=== PATIENT | female | born 1980 | race Caucasian/White ===

== ENCOUNTER 2018-02-22 12:01 | Emergency (ER) | payer OTHER ==
[~2018-02-22] VITALS: Ht 172.7 cm; Wt 95.3 kg
--- NOTE | 2018-02-22 14:37 | ED UPPER/LOWER EXTREMITY COMPL ---
History of Present Illness General Chief Complaint: Upper Extremity Injury Stated Complaint: LT ELBOW PAIN (WORK INJURY) Source: patient Exam Limitations: no limitations Vital Signs & Intake/Output Vital Signs & Intake/Output Vital Signs Date Time Temp Pulse Resp B/P B/P Pulse O2 O2 Flow FiO2 Mean Ox Delivery Rate 02/22 1612 84 18 146/86 99 Room Air 02/22 1209 98.1 88 16 164/102 98 Allergies Coded Allergies: thomas (RASH 02/22/18) Triage Note: PT TO THE ER C/O LEFT ELBOW PAIN. PT STATES THAT SHE HAD THIS INJURY IN [place] AT WORK, RESTRAINING A PT. PT STATES THAT HER MRI SHOWED A PARTIAL TEAR IN LEFT TENDON, MRI WAS 2 MONTHS AGO.. PT STATES THAT THE LAST 2 DAYS THAT THE PAIN IS WORSE 12/07. Triage Nurses Notes Reviewed? yes Onset: Gradual Duration: day(s): Timing: recent history Severity: moderate Pain/Injury Location: Left: Elbow. : No Patient currently breastfeeds: No HPI: 38-year-old female presents to emergency department complaining of pain above his left elbow worsening for the past 3 days. Patient states she had a work- related injury several months ago, she had an MRI confirming a partial tear in one of her ligaments. Patient states that her pain had been improving however recently over the past 3 days pain has worsened again. She has been taking ibuprofen since her work-related injury. There was no new trauma since the injury however patient has been going to work, work restrictions include not lifting greater than 20 pounds this arm. Patient denies numbness, tingling, fevers, chills. (Tiffani Mcmahon) Reconcile Medications Diclofenac Sodium (Voltaren) 1 % GEL..GRAM. 1 GM TOP 4 TIMES/DAY PRN pain apply to affected area(s) Lidocaine (Lidoderm) 5 % ADH..PATCH 1 PAT TOP DAILY PRN pain may wear up to 12 hours (Ursula Barragan) Past History Travel History Traveled to [place] past 21 day No Medical History Any Pertinent Medical History? see below for history Psychiatric: bipolar disease Surgical History Surgical History: non-contributory Psychosocial History What is your primary language Polish Tobacco Use: Current Not Daily Family History Hx Contributory? No (Tiffani Mcmahon) Review of Systems Review of Systems Constitutional: Reports: no symptoms. EENTM: Reports: no symptoms. Respiratory: Reports: no symptoms. Cardiovascular: Reports: no symptoms. Gastrointestinal/Abdominal: Reports: no symptoms. Genitourinary: Reports: no symptoms. Musculoskeletal: Reports: see HPI. Skin: Reports: no symptoms. Neurological/Psychological: Reports: no symptoms. Hematologic/Endocrine: Reports: no symptoms. Immunological: Reports: no symptoms. All Other Systems: Reviewed and Negative (Olivia DIAZ,Tiffani Pike) Physical Exam Physical Exam General Appearance: well developed/nourished, no apparent distress, alert, awake Head: atraumatic, normal appearance Eyes: Bilateral: normal appearance. Ears, Nose, Throat: hearing grossly normal Neck: normal inspection, supple, full range of motion Cardiovascular/Respiratory: normal peripheral pulses, no respiratory distress Peripheral Pulses: 2+ radial (R), 2+ radial (L) Back: normal inspection, normal range of motion Shoulder Left: normal range of motion, normal inspection Shoulder Right: normal range of motion, normal inspection Elbow Left: tenderness to proximal elbow, mild ecchymosis to upper arm and mild swelling of upper arm, ROM intact Elbow Right: normal range of motion, normal inspection Hand Left: normal inspection, normal range of motion Hand Right: normal inspection, normal range of motion Neurologic/Tendon: normal sensation, normal motor functions, normal tendon functions Skin: intact, warm/dry, ecchymosis (Olivia DIAZ,Tiffani Pike) Progress Differential Diagnosis: cellulitis, contusion, DVT, sprain, tendon injury Plan of Care: February 22, 2018 at 7 PM Patient signed out to me by JOE Baker Patient is a 38-year-old female who is presenting with a left elbow injury. She has been followed extensively by orthopedics and had an outpatient MRI that showed a ligament tear. She presents to the emergency department looking for additional evaluation and pain control. She was signed out to me with ultrasound pending. Duplex ultrasound was negative for DVT. She will be given Rx Voltaren gel and lidocaine patches for additional pain relief. Instructed to continue using Motrin for pain. She will follow-up with her orthopedist and was given strict return precautions. Ursula Jose PA-C Patient has been seeing an dairy specialist regarding her elbow injury, she is in the process of scheduling surgery for ligament repair. Patient now is having worsening pain. There is mild swelling, low suspicion for DVT however will assess with ultrasound to rule this out. If ultrasound negative this is likely related to inflammation/overuse as the patient has still been going to work despite ligament injury. The patient was signed out to JOE Jose pending ultrasound results. No evidence of cellulitis on physical exam. Patient has intact distal pulses, intact range of motion. No new trauma to indicate a bony abnormality. Hand-Off Endorsed To: Ursula Barragan Endorsed Time: 1749 Pending: ultrasound (Tiffani Mcmahon) Plan of Care: February 22, 2018 at 7 PM Patient signed out to me by JOE Baker Patient is a 38-year-old female who is presenting with a left elbow injury. She has been followed extensively by orthopedics and had an outpatient MRI that showed a ligament tear. She presents to the emergency department looking for additional evaluation and pain control. She was signed out to me with ultrasound pending. Duplex ultrasound was negative for DVT. She will be given Rx Voltaren gel and lidocaine patches for additional pain relief. Instructed to continue using Motrin for pain. She will follow-up with her orthopedist and was given strict return precautions. Ursula Jose PA-C (Ursula Barragan) Departure Departure Disposition: HOME OR SELF CARE Condition: Stable Clinical Impression Primary Impression: Elbow injury Qualifiers: Encounter type: subsequent encounter Laterality: left Qualified Code: S59.902D - Unspecified injury of left elbow, subsequent encounter Referrals: Prince Torres MD (PCP/Family) Departure Forms: Customer Survey General Discharge Information (Olivia DIAZ,Tiffani Pike) Departure Additional Instructions: Continue using Motrin as needed for your pain. Additionally you may use lidocaine patches during the day and Voltaren gel at night for your pain. Ice the area 2-3 times daily. Follow-up with your orthopedist for reevaluation. Return to the emergency department for any new or worsening symptoms. Prescriptions: Current Visit Scripts Lidocaine (Lidoderm) 1 PAT TOP DAILY PRN pain #30 PAT may wear up to 12 hours Diclofenac Sodium (Voltaren) 1 GM TOP 4 TIMES/DAY PRN pain #1 TUBE apply to affected area(s) (Ursula Barragan)
[2018-02-22 16:12] VITALS: BP 146/86
--- NOTE | 2018-02-22 18:12 | ULTRASOUND REPORT ---
EXAMINATION: DUPLEX DOPPLER UPPER EXTREMITY, left CLINICAL INFORMATION: Edema. Swelling. Pain. COMPARISON: None. TECHNIQUE: Duplex Doppler performed of left upper extremity deep veins with grayscale, color Doppler and spectral Doppler examination. FINDINGS: There is no evidence of deep vein thrombosis. Normal vascular flow is seen in the internal jugular vein, subclavian vein, axillary vein, brachial vein, basilic vein, cephalic vein and antecubital vein. IMPRESSION: No evidence of deep vein thrombosis.
[2018-02-22] MEDS ORDERED: LIDODERM1 EACH TOP (18:58)
[2018-02-22] MEDS ORDERED: VOLTAREN100 GM TOP (18:58)
== END 2018-02-22 19:17 ==
LOC: ERH 12:01
DX: S59.902D Unspecified injury of left elbow, subsequent encounter (principal); X58.XXXA Exposure to other specified factors, initial encounter; Y93.9 Activity, unspecified; Y92.9 Unspecified place or not applicable